=== PATIENT | female | born 1950 | race Caucasian/White ===

== ENCOUNTER 2016-11-30 08:16 | Inpatient (IN) | payer MEDICARE, BC ==
[~2016-11-30 08:16] MED LIST: cefOXitin 2 GM in Sodium Chloride 0.9% 50 ML IV ONE
[2016-11-30] MEDS ORDERED: fentaNYL 250 MCG/5 ML SDV ONE (09:36)
[2016-11-30] MEDS ORDERED: Rocuronium 50 MG/5 ML Vial ONE (09:37)
[2016-11-30] MEDS ORDERED: Neostigmine Methylsulfate 1 MG/ML 5 ML Syringe ONE (09:37)
[2016-11-30] MEDS ORDERED: Ondansetron 4 MG/2 ML SDV ONE (09:37)
[2016-11-30] MEDS ORDERED: Bupivacaine 0.5%/EPINEPHrine 1:200,000 50 ML MDV ONE (09:37)
[2016-11-30] MEDS ORDERED: Dexamethasone 4 MG/ML SDV ONE (09:37)
[2016-11-30] MEDS ORDERED: Propofol 200 MG/20 ML SDV ONE (09:37)
[2016-11-30] MEDS: Dextrose 5%-Lactated Ringers 1,000 ML IV SCH ×4 (09:39→23:46)
[2016-11-30] MEDS ORDERED: Lactated Ringers 1,000 ML ONE (11:55)
[2016-11-30] MEDS ORDERED: HYDROmorphone/Normal Saline 15 MG/30 ML PCA IV PRN (12:34)
[2016-11-30] MEDS ORDERED: Naloxone 0.4 MG/ML SDV IV PRN (12:35)
[2016-11-30] MEDS ORDERED: hydrOXYzine HCl 50 MG/ML SDV IM ONE (12:45)
[2016-11-30] MEDS ORDERED: Meperidine PF 100 MG/ML Syringe IM ONE (13:10)
[2016-11-30] MEDS ORDERED: Ondansetron 4 MG/2 ML SDV IVPUSH PRN (14:09)
[2016-11-30] MEDS ORDERED: hydrOXYzine HCl 25 MG Tab PO PRN (14:12)
[2016-11-30] MEDS ORDERED: Cyclobenzaprine 10 MG Tab PO PRN (14:12)
[2016-11-30] MEDS ORDERED: hydrOXYzine HCl 50 MG/ML SDV IM PRN (14:12)
[2016-11-30] MEDS: Pantoprazole 40 MG Vial IV SCH (16:09)
[2016-11-30] MEDS: cefOXitin 2 GM in Sodium Chloride 0.9% 50 ML IV SCH ×2 (16:51→22:07)
[2016-11-30] MEDS ORDERED: DULoxetine 30 MG Cap PO ONE (17:00)
[2016-11-30] MEDS ORDERED: Escitalopram 20 MG Tab PO ONE (17:00)
[2016-11-30] MEDS: Acetaminophen/HYDROcodone 325-5 MG Tab PO PRN (22:41)
[2016-12-01] MEDS: Acetaminophen/HYDROcodone 325-5 MG Tab PO PRN ×6 (02:32→23:26)
[2016-12-01] MEDS: cefOXitin 2 GM in Sodium Chloride 0.9% 50 ML IV SCH ×4 (05:16→23:28)
--- NOTE | 2016-12-01 07:36 | PCM.SURGPN ---
<Gato Son - Last Filed: 12/02/16 07:37> - Review of Systems General: Reports: No Symptoms Cardiovascular: Reports: No Symptoms Gastrointestinal: Reports: Abdominal pain Skin: Reports: no symptoms - Patient Data Vitals - most recent: Last Vital Signs Temp 99.0 F 12/01/16 15:29 Pulse 93 12/01/16 15:29 Resp 16 12/01/16 15:29 BP 126/76 12/01/16 15:29 Pulse Ox 97 12/01/16 15:29 I&O - last 24 hours: Intake & Output 12/01/16 12/01/16 12/01/16 06:59 14:59 22:59 Intake Total 1550 1500 Output Total 800 1000 Balance 1550 700 -1000 Lab Results last 24 hrs: Laboratory Results - last 24 hr 12/01/16 12/01/16 Range/Units 04:00 04:00 WBC 12.8 H (4.5-11.0) K/uL RBC 4.45 (3.30-5.50) M/uL Hgb 13.2 (12.0-15.0) g/dL Hct 41.7 (36.0-48.0) % MCV 94 (80-98) fL MCH 30 (27-31) pg MCHC 32 (32-36) % Plt Count 199 (150-400) K/uL Total Bilirubin 0.4 (0.2-1.0) mg/dL Alkaline Phosphatase 149 H (46-116) U/L Addison Results last 24 hrs: Microbiology 11/30/16 11:35 CLOtest - Final Stomach NEGATIVE CLOTEST Med Orders - Current: Current Medications Hydrocodone Bitart/Acetaminophen ([place] 325-5 Mg) 1 - 2 tab PO Q4H PRN PRN Reason: Pain Last Admin: 12/01/16 15:41 Dose: 2 tab Cyclobenzaprine HCl (Flexeril) 10 mg PO TID PRN PRN Reason: Muscle Spasm Duloxetine HCl (Cymbalta) 60 mg PO DAILY@1200 OSWALDO Last Admin: 12/01/16 11:25 Dose: 60 mg Escitalopram Oxalate (Lexapro) 20 mg PO DAILY@1200 OSWALDO Last Admin: 12/01/16 11:25 Dose: 20 mg Hydromorphone HCl (Dilaudid Target Developer 15 Mg In Ns 30 Ml) 0 mg IV ASDIRECTED PRN; Protocol PRN Reason: Pain Last Admin: 11/30/16 12:44 Dose: 0.3 mg Hydroxyzine HCl (Atarax) 100 mg PO Q4H PRN PRN Reason: Pain Hydroxyzine HCl (Vistaril) 100 mg IM Q4H PRN PRN Reason: Pain Cefoxitin Sodium 2 gm/ Sodium (Chloride) 50 mls @ 100 mls/hr IV Q6H [facility] Last Admin: 12/01/16 10:16 Dose: 100 mls/hr Dextrose/Lactated Ringer's (Dextrose 5%-Lactated Ringers) 1,000 mls @ 100 mls/ hr IV ASDIRECTED OSWALDO Last Admin: 12/01/16 08:34 Dose: 100 mls/hr Naloxone HCl (Narcan) 0.1 mg IV ASDIRECTED PRN PRN Reason: decreased respiratory rate Last Admin: 11/30/16 15:58 Dose: 0.1 mg Ondansetron HCl (Zofran) 4 mg IVPUSH Q4H PRN PRN Reason: Nausea Pantoprazole Sodium (Protonix Iv) 40 mg IV Q24H [facility] Last Admin: 12/01/16 15:43 Dose: 40 mg Discontinued Medications Bupivacaine HCl/Epinephrine Bitart (Marcaine 0.5%/Epinephrine 1:200,000) Confirm Administered Dose 50 ml .ROUTE .STK-MED ONE Stop: 11/30/16 09:38 Last Admin: 11/30/16 12:08 Dose: 50 ml Dexamethasone (Dexamethasone) Confirm Administered Dose 4 mg .ROUTE .STK-MED ONE Stop: 11/30/16 09:38 Duloxetine HCl (Cymbalta) 60 mg PO ONETIME ONE Stop: 11/30/16 17:01 Last Admin: 11/30/16 16:19 Dose: 60 mg Escitalopram Oxalate (Lexapro) 20 mg PO ONETIME ONE Stop: 11/30/16 17:01 Last Admin: 11/30/16 16:19 Dose: 20 mg Fentanyl (Sublimaze) Confirm Administered Dose 250 mcg .ROUTE .STK-MED ONE Stop: 11/30/16 09:37 Glycopyrrolate () Confirm Administered Dose 1 mg .ROUTE .STK-MED ONE Stop: 11/30/16 09:38 Hydroxyzine HCl (Vistaril) 75 mg IM ONETIME ONE Stop: 11/30/16 12:46 Last Admin: 11/30/16 12:43 Dose: 75 mg Dextrose/Lactated Ringer's (Dextrose 5%-Lactated Ringers) 1,000 mls @ 100 mls/ hr IV ASDIRECTED [facility] Last Admin: 11/30/16 14:05 Dose: 100 mls/hr Cefoxitin Sodium 2 gm/ Sodium (Chloride) 50 mls @ 100 mls/hr IV ONETIME ONE Stop: 11/30/16 08:29 Last Admin: 11/30/16 11:20 Dose: 100 mls/hr Lactated Ringer's (Ringers, Lactated) Confirm Administered Dose 1,000 mls @ as directed .ROUTE .STK-MED ONE Stop: 11/30/16 11:56 Dextrose/Lactated Ringer's (Dextrose 5%-Lactated Ringers) 1,000 mls @ 125 mls/ hr IV ASDIRECTED [facility] Last Admin: 11/30/16 23:46 Dose: 125 mls/hr Meperidine HCl (Demerol) 100 mg IM ONETIME ONE Stop: 11/30/16 13:11 Last Admin: 11/30/16 13:03 Dose: 100 mg Neostigmine Methylsulfate (Neostigmine) Confirm Administered Dose 5 mg .ROUTE .STK-MED ONE Stop: 11/30/16 09:38 Ondansetron HCl (Zofran) Confirm Administered Dose 4 mg .ROUTE .STK-MED ONE Stop: 11/30/16 09:38 Propofol (Diprivan 20 Ml) Confirm Administered Dose 200 mg .ROUTE .STK-MED ONE Stop: 11/30/16 09:38 Rocuronium Haworth (Zemuron) Confirm Administered Dose 50 mg .ROUTE .STK-MED ONE Stop: 11/30/16 09:38 - Exam Wound/Incisions: dressing dry and intact General: alert, moderate distress HEENT: Pupils equal, Pupils reactive, EOMI, Mucous membr. moist/pink Neck: supple Lungs: Clear to auscultation, Normal respiratory effort Cardiovascular: Regular Rate, Regular Rhythm Abdomen: bowel sounds present, soft Extremities: no edema Skin: warm, dry, intact Psy/Mental Status: alert, normal affect, normal mood - Problem List Review Problem List Initiated/Reviewed/Updated: Yes - My Orders Last 24 Hours: Active Orders 24 hr Category Date Time Status Admission Status [Patient Status] [ADT] Routine ADT 12/01/16 07:35 Active Overnight Pulse Oximetry [RC] Click To Edit Care 11/30/16 15:16 Active Clear Liquid Diet [DIET] Diet 11/30/16 Dinner Active DULoxetine [Cymbalta] Med 12/01/16 12:00 Active 60 mg PO DAILY@1200 Dextrose 5%-Lactated Ringers 1,000 ml Med 12/01/16 08:00 Active IV ASDIRECTED Escitalopram [Lexapro] Med 12/01/16 12:00 Active 20 mg PO DAILY@1200 Pantoprazole [ProTONIX IV] Med 11/30/16 16:00 Active 40 mg IV Q24H cefOXitin [Mefoxin] 2 gm Med 11/30/16 17:00 Active Sodium Chloride 0.9% [Normal Saline] 50 ml IV Q6H Pulse Oximetry Continuous Monitoring [OM.PC] Routine Oth 11/30/16 15:16 Ordered Medication Orders Hydrocodone Bitart/Acetaminophen ([place] 325-5 Mg) 1 - 2 tab PO Q4H PRN PRN Reason: Pain Last Admin: 12/01/16 15:41 Dose: 2 tab Admin: 12/01/16 11:28 Dose: 2 tab Admin: 12/01/16 07:36 Dose: 2 tab Admin: 12/01/16 02:32 Dose: 2 tab Admin: 11/30/16 22:41 Dose: 2 tab Cyclobenzaprine HCl (Flexeril) 10 mg PO TID PRN PRN Reason: Muscle Spasm Duloxetine HCl (Cymbalta) 60 mg PO DAILY@1200 OSWALDO Last Admin: 12/01/16 11:25 Dose: 60 mg Escitalopram Oxalate (Lexapro) 20 mg PO DAILY@1200 OSWALDO Last Admin: 12/01/16 11:25 Dose: 20 mg Hydromorphone HCl (Dilaudid Target Developer 15 Mg In Ns 30 Ml) 0 mg IV ASDIRECTED PRN; Protocol PRN Reason: Pain Last Admin: 11/30/16 12:44 Dose: 0.3 mg Hydroxyzine HCl (Atarax) 100 mg PO Q4H PRN PRN Reason: Pain Hydroxyzine HCl (Vistaril) 100 mg IM Q4H PRN PRN Reason: Pain Cefoxitin Sodium 2 gm/ Sodium (Chloride) 50 mls @ 100 mls/hr IV Q6H [facility] Last Admin: 12/01/16 10:16 Dose: 100 mls/hr Admin: 12/01/16 05:16 Dose: 100 mls/hr Admin: 11/30/16 22:07 Dose: 100 mls/hr Admin: 11/30/16 16:51 Dose: 100 mls/hr Dextrose/Lactated Ringer's (Dextrose 5%-Lactated Ringers) 1,000 mls @ 100 mls/ hr IV ASDIRECTED [facility] Last Admin: 12/01/16 08:34 Dose: 100 mls/hr Naloxone HCl (Narcan) 0.1 mg IV ASDIRECTED PRN PRN Reason: decreased respiratory rate Last Admin: 11/30/16 15:58 Dose: 0.1 mg Ondansetron HCl (Zofran) 4 mg IVPUSH Q4H PRN PRN Reason: Nausea Pantoprazole Sodium (Protonix Iv) 40 mg IV Q24H [facility] Last Admin: 12/01/16 15:43 Dose: 40 mg Admin: 11/30/16 16:09 Dose: 40 mg <Daya Gan R - Last Filed: 12/02/16 08:16> - General Info Date of Service: 12/01/16 Date of Surgery/Procedure: 11/30/16 POD#: 1 Post-Op Diagnosis: Biliary dyskinesia with inflammatory adherence to the duodenum Functional Status: Reports: ambulating - Review of Systems General: Reports: No Symptoms Cardiovascular: Reports: No Symptoms Gastrointestinal: Reports: Abdominal pain Skin: Reports: no symptoms Systems Review Comment:: Patient reports RUQ abdominal pain throughout the night that she rates a 5-6/ 10. She has been able to ambulate. Afebrile with stable vital signs. - Patient Data Vitals - most recent: Last Vital Signs Temp 36 C 12/01/16 02:29 Pulse 57 L 12/01/16 02:29 Resp 14 12/01/16 02:29 BP 115/83 12/01/16 02:29 Pulse Ox 97 12/01/16 07:22 Weight - most recent: 102.512 kg I&O - last 24 hours: Intake & Output 11/30/16 12/01/16 12/01/16 22:59 06:59 14:59 Intake Total 1165 1550 Output Total 500 Balance 665 1550 Lab Results last 24 hrs: Laboratory Results - last 24 hr 11/30/16 11/30/16 12/01/16 Range/Units 09:36 09:36 04:00 WBC 5.2 12.8 H (4.5-11.0) K/uL RBC 4.65 4.45 (3.30-5.50) M/uL Hgb 13.5 13.2 (12.0-15.0) g/dL Hct 42.0 41.7 (36.0-48.0) % MCV 90 94 (80-98) fL MCH 29 30 (27-31) pg MCHC 32 32 (32-36) % Plt Count 202 199 (150-400) K/uL Sodium 144 (140-148) mmol/L Potassium 4.1 (3.6-5.2) mmol/L Chloride 107 (100-108) mmol/L Carbon Dioxide 31 (21-32) mmol/L Anion Gap 6.4 (5.0-14.0) mmol/L BUN 18 (7-18) mg/dL Creatinine 0.9 (0.6-1.0) mg/dL Est Cr Clr Drug Dosing 62.03 mL/min Estimated GFR (MDRD) > 60 (>60) Glucose 100 (74-106) mg/dL Calcium 8.5 (8.5-10.1) mg/dL Phosphorus 3.7 (2.5-4.9) mg/dL Magnesium 2.2 (1.8-2.4) mg/dL Total Bilirubin 0.7 (0.2-1.0) mg/dL AST 26 (15-37) U/L ALT 29 (12-78) U/L Alkaline Phosphatase 151 H (46-116) U/L Total Protein 6.7 (6.4-8.2) g/dL Albumin 3.2 L (3.4-5.0) g/dL Globulin 3.5 (2.3-3.5) g/dL Albumin/Globulin Ratio 0.9 L (1.2-2.2) 12/01/16 Range/Units 04:00 WBC (4.5-11.0) K/uL RBC (3.30-5.50) M/uL Hgb (12.0-15.0) g/dL Hct (36.0-48.0) % MCV (80-98) fL MCH (27-31) pg MCHC (32-36) % Plt Count (150-400) K/uL Sodium (140-148) mmol/L Potassium (3.6-5.2) mmol/L Chloride (100-108) mmol/L Carbon Dioxide (21-32) mmol/L Anion Gap (5.0-14.0) mmol/L BUN (7-18) mg/dL Creatinine (0.6-1.0) mg/dL Est Cr Clr Drug Dosing mL/min Estimated GFR (MDRD) (>60) Glucose (74-106) mg/dL Calcium (8.5-10.1) mg/dL Phosphorus (2.5-4.9) mg/dL Magnesium (1.8-2.4) mg/dL Total Bilirubin 0.4 (0.2-1.0) mg/dL AST (15-37) U/L ALT (12-78) U/L Alkaline Phosphatase 149 H (46-116) U/L Total Protein (6.4-8.2) g/dL Albumin (3.4-5.0) g/dL Globulin (2.3-3.5) g/dL Albumin/Globulin Ratio (1.2-2.2) Med Orders - Current: Current Medications Hydrocodone Bitart/Acetaminophen (King[place] 325-5 Mg) 1 - 2 tab PO Q4H PRN PRN Reason: Pain Last Admin: 12/01/16 02:32 Dose: 2 tab Cyclobenzaprine HCl (Flexeril) 10 mg PO TID PRN PRN Reason: Muscle Spasm Duloxetine HCl (Cymbalta) 60 mg PO DAILY@1200 OSWALDO Escitalopram Oxalate (Lexapro) 20 mg PO DAILY@1200 OSWALDO Hydromorphone HCl (Dilaudid Target Developer 15 Mg In Ns 30 Ml) 0 mg IV ASDIRECTED PRN; Protocol PRN Reason: Pain Last Admin: 11/30/16 12:44 Dose: 0.3 mg Hydroxyzine HCl (Atarax) 100 mg PO Q4H PRN PRN Reason: Pain Hydroxyzine HCl (Vistaril) 100 mg IM Q4H PRN PRN Reason: Pain Dextrose/Lactated Ringer's (Dextrose 5%-Lactated Ringers) 1,000 mls @ 125 mls/ hr IV ASDIRECTED [facility] Last Admin: 11/30/16 23:46 Dose: 125 mls/hr Cefoxitin Sodium 2 gm/ Sodium (Chloride) 50 mls @ 100 mls/hr IV Q6H [facility] Last Admin: 12/01/16 05:16 Dose: 100 mls/hr Naloxone HCl (Narcan) 0.1 mg IV ASDIRECTED PRN PRN Reason: decreased respiratory rate Last Admin: 11/30/16 15:58 Dose: 0.1 mg Ondansetron HCl (Zofran) 4 mg IVPUSH Q4H PRN PRN Reason: Nausea Pantoprazole Sodium (Protonix Iv) 40 mg IV Q24H [facility] Last Admin: 11/30/16 16:09 Dose: 40 mg Discontinued Medications Bupivacaine HCl/Epinephrine Bitart (Marcaine 0.5%/Epinephrine 1:200,000) Confirm Administered Dose 50 ml .ROUTE .STK-MED ONE Stop: 11/30/16 09:38 Last Admin: 11/30/16 12:08 Dose: 50 ml Dexamethasone (Dexamethasone) Confirm Administered Dose 4 mg .ROUTE .STK-MED ONE Stop: 11/30/16 09:38 Duloxetine HCl (Cymbalta) 60 mg PO ONETIME ONE Stop: 11/30/16 17:01 Last Admin: 11/30/16 16:19 Dose: 60 mg Escitalopram Oxalate (Lexapro) 20 mg PO ONETIME ONE Stop: 11/30/16 17:01 Last Admin: 11/30/16 16:19 Dose: 20 mg Fentanyl (Sublimaze) Confirm Administered Dose 250 mcg .ROUTE .STK-MED ONE Stop: 11/30/16 09:37 Glycopyrrolate () Confirm Administered Dose 1 mg .ROUTE .STK-MED ONE Stop: 11/30/16 09:38 Hydroxyzine HCl (Vistaril) 75 mg IM ONETIME ONE Stop: 11/30/16 12:46 Last Admin: 11/30/16 12:43 Dose: 75 mg Dextrose/Lactated Ringer's (Dextrose 5%-Lactated Ringers) 1,000 mls @ 100 mls/ hr IV ASDIRECTED [facility] Last Admin: 11/30/16 14:05 Dose: 100 mls/hr Cefoxitin Sodium 2 gm/ Sodium (Chloride) 50 mls @ 100 mls/hr IV ONETIME ONE Stop: 11/30/16 08:29 Last Admin: 11/30/16 11:20 Dose: 100 mls/hr Lactated Ringer's (Ringers, Lactated) Confirm Administered Dose 1,000 mls @ as directed .ROUTE .STK-MED ONE Stop: 11/30/16 11:56 Meperidine HCl (Demerol) 100 mg IM ONETIME ONE Stop: 11/30/16 13:11 Last Admin: 11/30/16 13:03 Dose: 100 mg Neostigmine Methylsulfate (Neostigmine) Confirm Administered Dose 5 mg .ROUTE .STK-MED ONE Stop: 11/30/16 09:38 Ondansetron HCl (Zofran) Confirm Administered Dose 4 mg .ROUTE .STK-MED ONE Stop: 11/30/16 09:38 Propofol (Diprivan 20 Ml) Confirm Administered Dose 200 mg .ROUTE .STK-MED ONE Stop: 11/30/16 09:38 Rocuronium Haworth (Zemuron) Confirm Administered Dose 50 mg .ROUTE .STK-MED ONE Stop: 11/30/16 09:38 - Exam Wound/Incisions: dressing dry and intact General: alert, oriented HEENT: Pupils equal, Pupils reactive, EOMI, Mucous membr. moist/pink Neck: supple Lungs: Clear to auscultation, Normal respiratory effort Cardiovascular: Regular Rate, Regular Rhythm Abdomen: bowel sounds present, soft Extremities: no edema Skin: warm, dry, intact Psy/Mental Status: alert, normal affect, normal mood - Problem List Review Problem List Initiated/Reviewed/Updated: Yes - My Orders Last 24 Hours: Active Orders 24 hr Category Date Time Status Admission Status [Patient Status] [ADT] Routine ADT 11/30/16 12:30 Active Activity as Tolerated [RC] .Routine Care 11/30/16 14:11 Active Intake and Output [RC] ASDIRECTED Care 11/30/16 14:17 Active Overnight Pulse Oximetry [RC] Click To Edit Care 11/30/16 15:16 Active Turn, Cough, Deep Breathe [RC] .PRN Care 11/30/16 14:12 Active Vital Signs [RC] Q4H Care 11/30/16 14:10 Active Clear Liquid Diet [DIET] Diet 11/30/16 Dinner Active DOROTHY TEST [RM] Routine Lab 11/30/16 11:35 Received Acetaminophen/HYDROcodone [Kingston 325-5 MG] Med 11/30/16 14:09 Active 1 - 2 tab PO Q4H PRN Cyclobenzaprine [Flexeril] Med 11/30/16 14:12 Active 10 mg PO TID PRN DULoxetine [Cymbalta] Med 12/01/16 12:00 Active 60 mg PO DAILY@1200 Dextrose 5%-Lactated Ringers 1,000 ml Med 11/30/16 14:15 Active IV ASDIRECTED Escitalopram [Lexapro] Med 12/01/16 12:00 Active 20 mg PO DAILY@1200 HYDROmorphone/Normal Saline [Dilaudid LANDMEN 15 MG in NS Med 11/30/16 12:34 Active 30 ML] See Protocol IV ASDIRECTED PRN Naloxone [Narcan] Med 11/30/16 12:35 Active 0.1 mg IV ASDIRECTED PRN Ondansetron [Zofran] Med 11/30/16 14:09 Active 4 mg IVPUSH Q4H PRN Pantoprazole [ProTONIX IV] Med 11/30/16 16:00 Active 40 mg IV Q24H cefOXitin [Mefoxin] 2 gm Med 11/30/16 17:00 Active Sodium Chloride 0.9% [Normal Saline] 50 ml IV Q6H hydrOXYzine HCl [Atarax] Med 11/30/16 14:12 Active 100 mg PO Q4H PRN hydrOXYzine HCl [Vistaril] Med 11/30/16 14:12 Active 100 mg IM Q4H PRN Pulse Oximetry Continuous Monitoring [OM.PC] Routine Oth 11/30/16 15:16 Ordered SCD [Sequential Compression Device] [OM.PC] Routine Oth 11/30/16 08:15 Ordered SCD [Sequential Compression Device] [OM.PC] Routine Oth 11/30/16 14:23 Ordered Medication Orders Hydrocodone Bitart/Acetaminophen ([place] 325-5 Mg) 1 - 2 tab PO Q4H PRN PRN Reason: Pain Last Admin: 12/01/16 02:32 Dose: 2 tab Admin: 11/30/16 22:41 Dose: 2 tab Cyclobenzaprine HCl (Flexeril) 10 mg PO TID PRN PRN Reason: Muscle Spasm Duloxetine HCl (Cymbalta) 60 mg PO DAILY@1200 OSWALDO Escitalopram Oxalate (Lexapro) 20 mg PO DAILY@1200 OSWALDO Hydromorphone HCl (Dilaudid Target Developer 15 Mg In Ns 30 Ml) 0 mg IV ASDIRECTED PRN; Protocol PRN Reason: Pain Last Admin: 11/30/16 12:44 Dose: 0.3 mg Hydroxyzine HCl (Atarax) 100 mg PO Q4H PRN PRN Reason: Pain Hydroxyzine HCl (Vistaril) 100 mg IM Q4H PRN PRN Reason: Pain Dextrose/Lactated Ringer's (Dextrose 5%-Lactated Ringers) 1,000 mls @ 125 mls/ hr IV ASDIRECTED [facility] Last Admin: 11/30/16 23:46 Dose: 125 mls/hr Infusion: 11/30/16 22:25 Dose: 125 mls/hr Admin: 11/30/16 14:25 Dose: 125 mls/hr Cefoxitin Sodium 2 gm/ Sodium (Chloride) 50 mls @ 100 mls/hr IV Q6H [facility] Last Admin: 12/01/16 05:16 Dose: 100 mls/hr Admin: 11/30/16 22:07 Dose: 100 mls/hr Admin: 11/30/16 16:51 Dose: 100 mls/hr Naloxone HCl (Narcan) 0.1 mg IV ASDIRECTED PRN PRN Reason: decreased respiratory rate Last Admin: 11/30/16 15:58 Dose: 0.1 mg Ondansetron HCl (Zofran) 4 mg IVPUSH Q4H PRN PRN Reason: Nausea Pantoprazole Sodium (Protonix Iv) 40 mg IV Q24H [facility] Last Admin: 11/30/16 16:09 Dose: 40 mg - Assessment Assessment (Free Text/Narrative):: Laparoscopic cholecystectomy and repair of deserosalized duodenum - Plan Plan (Free Text/Narrative):: 1. Discontinue LANDMEN and start Kingston 1-2 tabs PO q4h PRN abdominal pain 2. Work on ambulation and encourage incentive spirometer 3. IV fluids rate down to 100mL/hr
[2016-12-01] MEDS: Dextrose 5%-Lactated Ringers 1,000 ML IV SCH ×2 (08:34→19:31)
[2016-12-01] MEDS: DULoxetine 30 MG Cap PO SCH (11:25)
[2016-12-01] MEDS: Escitalopram 20 MG Tab PO SCH (11:25)
[2016-12-01] MEDS: Pantoprazole 40 MG Vial IV SCH (15:43)
[2016-12-02] MEDS: Acetaminophen/HYDROcodone 325-5 MG Tab PO PRN ×3 (03:11→13:49)
[2016-12-02] MEDS: cefOXitin 2 GM in Sodium Chloride 0.9% 50 ML IV SCH ×4 (05:06→22:17)
[2016-12-02] MEDS ORDERED: Ondansetron 4 MG Tab.DIS PO PRN (08:22)
[2016-12-02] MEDS ORDERED: Magnesium Hydroxide 400 MG/5 ML Susp 30 ML Cup PO ONE (09:00)
[2016-12-02] MEDS ORDERED: Bisacodyl 5 MG Tab PO ONE (10:00)
--- NOTE | 2016-12-02 10:17 | PN ---
DATE OF SERVICE: 12/02/2016 SUBJECTIVE: Melissa is postop day #2. She is feeling nauseated, bloated, and constipated. She states she feels weak all over and just not herself. She has been afebrile. Oral intake was 2580 and urine output was 3450. REVIEW OF SYSTEMS: Remainder of review of systems negative for any pertinent positives and negatives. OBJECTIVE: GENERAL: Melissa is a 66-year-old female. She is alert and orientated, pale and weak. VITAL SIGNS: TPR is 98.1, 67, 17, blood pressure 142/88. HEENT: Negative. NECK: Supple. HEART: Regular rate and rhythm. LUNGS: Clear. ABDOMEN: Dressings dry and intact. Abdominal binder is on. EXTREMITIES: Without peripheral edema. ASSESSMENT: 1. EGD with biopsies for CLOtest. 2. Diagnostic laparoscopy with cholecystectomy and repair of area of deserosalization, omentum, for;. a. Dysphagia. b. Biliary dyskinesia with cholelithiasis. c. Inflammation of the gallbladder neck with area of deserosalized obstruction. PLAN: 1. Discontinue [employer] and continuous pulse ox. 2. Wilson 5/325 mg 1 to 2 every 4 hours p.r.n. pain, Zofran ODT 4 mg q.4 hours p.r.n. nausea, milk of magnesia 30 mL p.o. now followed in 1 hour by Consuelolax 2 tabs p.o. and give 1 L of LR with MVI with vitamin K 10 mL, multivitamin, thiamine 100 mg, magnesium sulfate 2 grams, folic acid 1 mg to run over 200 mL per hour. 3. We will evaluate p.r.n. or in a.m. Yanet Tong PA-C /[id number]
[2016-12-02] MEDS: DULoxetine 30 MG Cap PO SCH (11:56)
[2016-12-02] MEDS: Escitalopram 20 MG Tab PO SCH (11:56)
[2016-12-02] MEDS ORDERED: Acetaminophen 325 MG Tab PO PRN (13:33)
[2016-12-02] MEDS: Pantoprazole 40 MG Vial IV SCH (15:29)
[2016-12-02] MEDS ORDERED: MVI, Adult with Vitamin K 10 ML, Chromium/Copper/Mang/Selen/Zn 1 ML, Thiamine 200 MG in... IV ONE ×4 (16:00)
[2016-12-02] MEDS ORDERED: diphenhydrAMINE 25 MG Cap PO PRN (23:59)
[2016-12-03 03:21] VITALS: BP 159/68
--- NOTE | 2016-12-03 10:45 | DISCH ---
ADMISSION DIAGNOSES: Biliary dyskinesia, status post Daniel-en-Y gastric bypass surgery, unspecified surgical malabsorption, B12 deficiency, and depression. DISCHARGE DIAGNOSES: 1. Laparoscopic cholecystectomy and repair of area of deserosalization in the omentum for biliary dyskinesia with cholelithiasis and inflammation of the gallbladder neck with area of deserosalized obstruction. 2. EGD with biopsies/DOROTHY test for dysphagia. Date of surgery, 12/01/2016. HISTORY: Melissa Stokes is a 66-year-old female with postprandial abdominal pain and associated with occasional dysphagia. After preoperative evaluation and discussion of possible risks and possible complications, she wished to proceed with surgical procedure. HOSPITAL COURSE: Melissa had her surgery on 12/01/2016. She had no operative complications. On postop day 1, she developed an increased nausea, dizziness, and weakness. She was treated appropriately. On postop day 2, she was having difficulty with constipation and leg cramps/Charley horses. She did start having bowel movements. Her appetite increased. Vital signs remained stable. Pain was controlled, and she was able to be discharged on postop day #3. PHYSICAL EXAMINATION: GENERAL: Melissa Stokes is a 66-year-old female. VITAL SIGNS: Height is 5 feet 8 inches. Weight is 226 pounds. TPR is 99, 80, 18, blood pressure 159/68. HEENT: Negative. NECK: Supple. HEART: Regular rate and rhythm. LUNGS: Clear. ABDOMEN: Sutures in place. Abdominal binder has been on. EXTREMITIES: Without peripheral edema. DISPOSITION: Discharged to home. CONDITION: Stable and improving. FOLLOWUP APPOINTMENT: On 12/10/2016 at 11 a.m. DISCHARGE MEDICATIONS: Home medications; Edison 5/325 mg 1 to 2 every 4 hours p.r.n. pain, #50. She is to resume her home medication of calcium citrate one chewable twice daily, vitamin D3 5000 international units daily, vitamin B12 1000 mcg sublingual daily, vitamin B12 1 mL intramuscular every 3 weeks, Flexeril 10 mg oral 3 times a day, Cymbalta 60 mg oral daily, Lexapro 20 mg oral daily, multivitamin one each twice daily, thiamine (vitamin B1) 100 mg oral daily, vitamin B complex 1 oral twice daily. DISCHARGE DIET: Usual diet as tolerated. Drink 8 to 10 glasses of water a day. ACTIVITY: No lifting greater than 10 pounds for 2 weeks. Other activity, walk 6 to 8 times daily inside your home. Driving after discharge, do not drive while on pain medication. May shower. Notify provider if any fever, nausea, or vomiting. Wound incision care, keep site clean and dry. Wear abdominal binder for 2 weeks and as tolerated. SPECIAL INSTRUCTION: Use incentive spirometer 10 times every hour while awake.
[2016-12-03] MEDS: DULoxetine 30 MG Cap PO SCH ×2 (10:57→11:11)
[2016-12-03] MEDS: Escitalopram 20 MG Tab PO SCH ×2 (10:57→11:11)
--- NOTE | 2016-12-07 11:28 | OR ---
DATE OF PROCEDURE: 11/30/2016 PREOPERATIVE DIAGNOSES: 1. Biliary dyskinesia. 2. Recent onset of epigastric pain. POSTOPERATIVE DIAGNOSES: 1. Biliary dyskinesia associated with cholelithiasis and marked chronic inflammation fusing gallbladder neck and cystohepatic triangle to duodenal wall resulting in an area of duodenal deserolization. 2. Normal upper GI endoscopic examination, status post Daniel-en-Y gastric bypass. PROCEDURE: 1. Upper GI endoscopy with biopsies of gastric pouch for CLOtest (17824). 2. Diagnostic laparoscopy with a. Cholecystectomy (04715) b. Repair of area of deserosalization overlying duodenum (13234). ANESTHESIA: General. [employer]: Yanet Tong PA-C. INDICATION FOR PROCEDURE: This is a 66-year-old female presenting with some recurrent symptoms of biliary colic. She had a CCK-stimulated HIDA scan which showed a below normal ejection fraction, as well as causing reproduction of her symptoms. Given this, she is to undergo cholecystectomy. Recently, she had noted have suffered some epigastric pain. The patient is status post gastric bypass. Plan is proceed with upper GI endoscopy with biopsies as indicated. Potential risks of procedure including bleeding, infection, injury to underlying viscera, possible repersistent symptoms over time were all reviewed, and the patient wishes to proceed. DETAILS OF PROCEDURE: The patient was taken to the operating room and after general endotracheal anesthesia was introduced, the upper GI endoscope was passed orally through the length of the esophagus into the gastric pouch and from there roughly 20 cm into the Daniel limb. To that level, no abnormalities were noted. There is no area of stricturing and no areas of redness or signs of inflammation or ulceration. Biopsies were obtained from gastric pouch and sent for Clotest for H. pylori. The endoscope was withdrawn and the procedure was then concluded. Attention was then taken to the cholecystectomy. Initially a transverse epigastric incision was made and the peritoneal cavity entered under direct vision with an Optiview trocar, inflated to 15 mmHg pressure with CO2. The laparoscope was then reinserted. No underlying trocar insertion site injuries were seen. Following this, a 12 mm subumbilical trocar along with a single 5 mm right upper quadrant trocar was placed and the upper abdomen examined. Of note, the patient's antrum and proximal most duodenum were not associated with any significant inflammation, i.e., no obvious signs of ulceration were seen in that area from the external surface. The patient's gallbladder, however, was quite distended and fairly harris in appearance consistent with some chronic inflammation. Dissection began on the gallbladder neck and as one came down toward the cystohepatic triangle, the lower end of the gallbladder neck and cystohepatic triangle were densely fused with the duodenum. As these were dissected off using combination of blunt and sharp dissection, there was a roughly 2-cm segment of the duodenum which was deserosalized. No full-thickness entrance to the duodenum was seen. At that point then, the gallbladder neck and cystic duct junction and the cystic artery was then identified both structures were clipped 3 times proximally and once distally and divided. The gallbladder dissected off the gallbladder bed using Harmonic scalpel. Entrance was via the upper midline port. Of note, the gallbladder was found to have multiple small black stones within it. The area of duodenal deserosalization was then repaired with some 3-0 Vicryl seromuscular stitches and then reinforced with fibrin sealant as well. At that point, no further problems noted. The drain was felt not to be necessary. The trocars were removed and the peritoneal cavity deflated. Incisions were closed with 0 Vicryl stitch at the fascia level and 4-0 Vicryl skin stitch. Dressing was applied. The patient was taken to the recovery room in satisfactory condition. Gato Son MD /[id number]
== END 2016-12-03 11:45 | disposition home or self-care (01) | DRG 418 ==
LOC: JP.SDS 08:16 → JP.2SS 12:30 → JP.SDS 12-01 07:34 → JP.2SS 12-01 07:35
PROVIDERS: ADMIT Surgery; ATTEND Surgery
PROC: 0FT44ZZ Resection of Gallbladder, Percutaneous Endoscopic Approach (ICD-10-PCS; principal; 2016-11-30)
PROC: [UNRECOGNIZED PROCEDURE] (principal; 2016-11-30)
PROC: 0DB68ZX Excision of Stomach, Via Natural or Artificial Opening Endoscopic, Diagnostic (ICD-10-PCS; principal; 2016-11-30)
DX: K80.10 Calculus of gallbladder with chronic cholecystitis without obstruction (principal); K91.2 Postsurgical malabsorption, not elsewhere classified; K82.8 Other specified diseases of gallbladder; K80.20 Calculus of gallbladder without cholecystitis without obstruction; I10 Essential (primary) hypertension; R13.10 Dysphagia, unspecified; K59.00 Constipation, unspecified; M62.831 Muscle spasm of calf; F32.9 Major depressive disorder, single episode, unspecified; E53.8 Deficiency of other specified B group vitamins; Z98.84 Bariatric surgery status; Z98.0 Intestinal bypass and anastomosis status; G47.33 Obstructive sleep apnea (adult) (pediatric); M35.3 Polymyalgia rheumatica; K66.0 Peritoneal adhesions (postprocedural) (postinfection)
CPT/HCPCS: 36415 ×2; 43239; 44602; 47562; 80053; 82247; 83735; 84075; 84100; 85027 ×2; 87081; 94762; A9270 ×4; C9113; J0694 ×4; J1100; J1170; J2175; J2310; J2405; J2704; J3010; J3410; J7042 ×4; J7050 ×4; J7120; 88304; J3411